=== PATIENT | female | born 1930 | race Caucasian/White ===

== ENCOUNTER → 2016-05-18 | Outpatient (CLI) | payer OTHER, BC ==
--- NOTE | 2016-05-18 15:53 | MA ---
Screening Digital Mammogram With iCAD Analysis Clinical Indications: Routine screening. Her mother was diagnosed with breast cancer in her 70s. The patient has had prior benign right breast biopsies. Technique: Standard cephalocaudal projections are obtained. Digital breast tomosynthesis was performe d in the MLO projection with reconstruction at 1.0 mm slice thickness and composite MLO views reconst ructed. This examination is processed by the iCAD computer aided detection system. Comparison: April 2015, April 2014, May 2013, April 2013, April 2012, April 2011, Chacho [email or web address], March 2009. Breast density: Type C: Heterogeneously dense. Findings: CAD was reviewed. Nodular asymmetry in the region of previous breast biopsy in the upper br east is unchanged. No masses, suspicious calcifications or secondary signs of malignancy are seen. Th ere has been no significant change in the appearance of either breast. Vascular calcifications are no alex. Impression: Benign mammography, BI-RADS 2. Recommendation: Routine mammographic screening in one year as long as physical examination is negativ e in this patient with heterogeneously dense breast parenchyma. [facility] will send a result letter to the patient. Negative mammography should not preclude additional workup of a clinically suspicious finding. The patient's information is entered into a reminder system with a target due date for her next mammo gram.
== END ==
LOC: FIMAGING 12:14
DX: Z12.31 Encounter for screening mammogram for malignant neoplasm of breast (principal); Z80.3 Family history of malignant neoplasm of breast
CPT/HCPCS: G0202

== ENCOUNTER → 2016-06-12 | Outpatient (CLI) | payer OTHER, BC | LOC: FCPNEURO 21:30 | PROVIDERS: ATTEND Psychiatry & Neurology Sleep Medicine | DX: G47.33 Obstructive sleep apnea (adult) (pediatric) (principal); J96.11 Chronic respiratory failure with hypoxia ==

== ENCOUNTER 2016-07-08 18:21 | Inpatient (IN) | payer OTHER, BC ==
[2016-07-08 19:10] LABS: % IMMATURE GRANULYOCYTES 0.4 % (0.0-1.1); ABSOLUTE IMMATURE GRANULOCYTES 0.04 10^3/uL (0.00-0.10); ADD DIFF? NO; ADD MORPH? NO; ADD SCAN? NO; ATYPICAL LYMPHOCYTE FLAG 0 (0-99); FRAGMENT RBC FLAG 0 (0-99); HEMATOCRIT 44.3 % (38.0-47.0); HEMOGLOBIN 14.6 g/dL (12.6-16.3); LEFT SHIFT FLG 0 (0-99); LIPEMIA HEMOLYSIS FLAG 80 (0-99); MEAN CELL HEMOGLOBIN 30.5 pg (27.9-34.1); MEAN CELL VOLUME 92.7 fL (81.5-99.8); MEAN PLATELET VOLUME 9.1 fL (8.7-11.7); PLATELET CLUMPS FLAG 0 (0-99); PLATELET COUNT 346 10^3/uL (150-400); RED BLOOD CELL COUNT 4.78 10^6/uL (4.18-5.33); RED CELL DISTRIBUTION WIDTH 12.5 % (11.5-15.2)
[2016-07-08 19:22] LABS: ANION GAP 11 mEq/L (8-16); CALCIUM 9.2 mg/dL (8.5-10.4); CARBON DIOXIDE 25 mEq/l (22-31); CHLORIDE 99 mEq/L (97-110); CREATININE 0.7 mg/dL (0.6-1.0); GLOMERULAR FILTRATION RATE > 60; GLUCOSE 92 mg/dL (70-100); POTASSIUM 4.6 mEq/L (3.5-5.2); SODIUM 135 mEq/L (134-144)
--- NOTE | 2016-07-08 19:30 | EDPHY ---
H & P Stated Complaint: L side facial swelling post dental work, sent by PCP Time Seen by Provider: 07/08/16 18:47 HPI/ROS: CHIEF COMPLAINT: Evaluation of subcutaneous emphysema HISTORY OF PRESENT ILLNESS: The patient presents to the ED for evaluation of subcutaneous emphysema. She was at her dentist today having work done on a dental harsh on her left lower mandible. During the procedure, high-pressure air was injected into her gumline which resulted in fairly significant swelling of her face, cheek and neck. The patient was directed from her dentist office to the primary care physician's office. The primary care physician who consulted the oral surgeon who recommended the patient be sent to the the ED for evaluation of possible mediastinitis. In the ED, the patient complains of ongoing facial pain, swelling and subcutaneous emphysema. REVIEW OF SYSTEMS: A comprehensive 10 point review of systems is otherwise negative aside from elements mentioned in the history of present illness. Source: Patient Exam Limitations: No limitations - Personal History Current Tetanus/Diphtheria Vaccine: Unsure Current Tetanus Diphtheria and Acellular Pertussis (TDAP): Unsure - Medical/Surgical History Hx Asthma: No Hx Chronic Respiratory Disease: No Hx Diabetes: No Hx Cardiac Disease: No Hx Renal Disease: No Hx Cirrhosis: No Hx Alcoholism: No Hx HIV/AIDS: No Hx Splenectomy or Spleen Trauma: No Other PMH: hypothyroid - Social History Smoking Status: Never smoked - Physical Exam Exam: General Appearance: Alert, no distress Eyes: Pupils equal and round no pallor or injection ENT, Mouth: Left-sided facial swelling, subcutaneous emphysema which tracks throughout the cheek, lower mandible neck into the sternal notch. Respiratory: There are no retractions, lungs are clear to auscultation Cardiovascular: Regular rate and rhythm Gastrointestinal: Abdomen is soft and nontender, no masses, bowel sounds normal Neurological: A&O, normal motor function, normal sensory exam, normal cranial nerves Skin: Warm and dry, no rashes Musculoskeletal: Neck is supple nontender Extremities: symmetrical, full range of motion Constitutional: Initial Vital Signs Temperature (C) 36.7 C 07/08/16 18:30 Heart Rate 78 07/08/16 18:30 Respiratory Rate 17 07/08/16 18:30 Blood Pressure 160/93 H 07/08/16 18:30 O2 Sat (%) 96 07/08/16 18:30 O2 Delivery Mode Room Air Allergies/Adverse Reactions: No Known Allergies Allergy (Unverified 07/08/16 18:29) Home Medications: Medication Instructions Recorded Amox Tr/K Clav (Augmentin) 500 mg PO BID 07/08/16 [Augmentin 500/125 MG TAB (*)] Ascorbic Acid [Vitamin C 500 mg 500 mg PO DAILY 07/08/16 (*)] Aspirin [Aspirin 81mg (*)] 81 mg PO DAILY 07/08/16 Calcium Carbonate [Oyster Shell 500 mg PO DAILY@18 07/08/16 Calcium 500 mg (*)] Cholecalciferol Vit D3 [Vitamin D3 2,000 units PO DAILY 07/08/16 (*)] Herbals/Supplements -Info Only 1 ea PO DAILY 07/08/16 Levothyroxine [Synthroid 112 mcg 112 mcg PO DAILY06 07/08/16 (*)] Magnesium Oxide [Magnesium Oxide 400 mg PO DAILY 07/08/16 400 mg (*)] Multivitamins [Multivitamin (*)] 1 each PO DAILY 07/08/16 Vit B Comp/C/FA/Iron/Vit E 1 each PO DAILY 07/08/16 [Vitamin B Complex Tablet] Medical Decision Making - Diagnostics Imaging: CT Neck Soft Tissues, Without Intravenous Contrast History: Subcutaneous emphysema, air entering the left side of the face during dental procedure. Swelling, pain. Technique: Noncontrast axial computed tomographic images of the neck and chest performed. Dose reduction techniques utilized. Findings: Diffuse subcutaneous emphysema within the left neck soft tissues, with the most cephalad extent in the left inferior periorbital region, left infratemporal fossa, left ell teacher space, left submandibular space, left anterior cervical region and submental region, left carotid space, and retropharyngeal space. Retropharyngeal space begins at the nasopharynx and extends into the superior mediastinum. Subcutaneous emphysema also surrounding the visceral space beginning at the level of the thyroid cartilage and extending into the superior mediastinum. Subcutaneous emphysema also in the right carotid space beginning at the hyoid cartilage extending inferiorly. The visceral space is outlined with subcutaneous emphysema. However, the airway is patent, without narrowing of the airway. No associated focal fluid collection or hematoma. Paranasal sinuses and mastoid air cells are clear. Moderate to severe facet arthropathy on the left at C3-C4 and C4-C5, on the right at C5-C6. Impression: 1. Extensive left neck subcutaneous emphysema extending from the left periorbital region throughout the left neck soft tissues into the superior mediastinum, and also extending on the right and outlining the visceral space. 2. No evidence of focal neck hematoma or fluid collection. 3. Airway is patent. ED Course/Re-evaluation: The patient presents to the emergency department with subcutaneous emphysema which was injected through a high-pressure dental cleaning device. The patient has extensive subcutaneous emphysema without evidence of airway compromise. There is mild mediastinal emphysema without katrin pneumomediastinum noted on the CT scan. The patient is well-appearing with stable vital signs. She does have significant soft tissue swelling and subcutanseous emphysema. I did consult with Dr. Yareli Jackson who is on-call for ENT. She does recommend admission to the hospital for IV antibiotics and observation for the development of a more significant infection. The patient did receive 600 mg IV clindamycin. Consultation was made with Dr. Albright from the hospitalist service who will admit the patient to the hospital for observation. If she has no progression of symptoms or fever she can likely be discharged home with a short course of antibiotics. At this point in time, there is no need for surgical intervention or formal consultation. Differential Diagnosis: DDx includes pneumomediastinum, airway compromise, mediastinitis, pneumothorax, vascular injury - Data Points Laboratory Results: Laboratory Results 07/08/16 19:00 07/08/16 19:00 Medications Given: Discontinued Medications Clindamycin Phosphate/Dextrose (Cleocin 600 Mg (Premix)) 50 mls @ 100 mls/hr IV EDNOW ONE PRN Reason: Protocol Stop: 07/08/16 20:21 Last Admin: 07/08/16 20:15 Dose: 50 mls Clindamycin Phosphate/Dextrose (Cleocin 600 Mg (Premix)) 50 mls @ 100 mls/hr IV Q8HRS RACHEL PRN Reason: Protocol Stop: 08/07/16 21:59 Last Admin: 07/08/16 23:00 Dose: Not Given Departure - Departure Disposition: [facility] Inpatient Acute Clinical Impression: Subcutaneous emphysema Condition: Good
[2016-07-08] MEDS ORDERED: CLINDAMYCIN 600 MG/DEXTROSE 50 ML IV ONE (19:52)
[2016-07-08] MEDS ORDERED: oxyCODONE IR 5 MG TAB PO PRN (21:55)
[2016-07-08] MEDS ORDERED: HYDROmorphONE/DILAUDID 1 MG/ML SYR IVP PRN (21:55)
[2016-07-08] MEDS ORDERED: ONDANSETRON DISINTEGRATING 4 MG TAB PO PRN (21:55)
[2016-07-08] MEDS ORDERED: ALBUTEROL 3 ML DEYVIAL IH PRN (21:55)
[2016-07-08] MEDS ORDERED: ONDANSETRON 4 MG/2 ML VIAL IVP PRN (21:55)
[2016-07-08] MEDS ORDERED: CLINDAMYCIN 600 MG/DEXTROSE 50 ML IV SCH (22:00)
[2016-07-09] MEDS: ACETAMINOPHEN 325 MG TAB PO PRN ×3 (00:27→11:24)
--- NOTE | 2016-07-09 00:47 | GHP ---
[f rep st] HISTORY AND PHYSICAL DATE OF ADMISSION: 07/08/2016 CHIEF COMPLAINT: Complaint facial swelling. HISTORY: This is an 85-year-old female with a past medical history of hypothyroidism and recent iss ue with a dental infection presenting shortly after being seen by her dentist today and developing f acial swelling during the dental procedure that continued shortly after. She notes she was being tr eated for an infection that she describes as being below the gum line when her dentist was working w ith various instruments to push the gum out of the way in order to get at the infection of her tooth . She notes that he was having difficulty keeping the area dry and was using forced air to try to d ry out the area around the gum and the tooth. While he was doing this, she began to feel as if her face was swelling and mentioned to him that she had some concerns about this. He initially reassure d her but then noticed that the side of her face was significantly swollen. At that point, the proc edure was discontinued and per her report he became concerned that she had some air in the soft tiss ues of her face, but he was uncertain what should be done about it. After calling around to some or al facial surgeons, he started her on antibiotics and reassured her that she could go home and watch this. The swelling continued, however, and began to involve her eye with swelling and drainage of what she thought was possibly from her left eye. She discussed this with her primary care physician who also had not had much experience with this but recommended that she come to the emergency room for further evaluation. She denies any difficulty breathing. She denies any fevers or chills. She does not have any chest pain. PAST MEDICAL HISTORY: Includes hypothyroidism and recent dental issues as well as chronic back pain . FAMILY HISTORY: Parents are . SOCIAL HISTORY: The patient is a non drinker, non smoker. She lives independently. REVIEW OF SYSTEMS: 10-point review of systems obtained and negative except as per HPI. MEDICATIONS: 1. Calcium carbonate. 2. Multivitamin. 3. Mag oxide. 4. Aspirin. 5. Synthroid. 6. Cholecalciferol. 7. Ascorbic acid. 8. Multivitamin. 9. Augmentin. ALLERGIES: No known drug allergies. PHYSICAL EXAMINATION: VITAL SIGNS: BP 162/78, heart rate 79, respiratory rate 14, O2 sat 95% on ro om air. Temperature is 36.8. GENERAL APPEARANCE: The patient is awake and alert, no acute distres s. EYES: Left eye has significant edema to the medial eyelid with some dry crust on her upper and l ower lids. Extraocular movements are intact and pupils are equal, round, and reactive. HEENT: The re is swelling to the lateral portion of face and neck with crepitus, no erythema or tenderness. CA RDIOVASCULAR: RRR, no MRG. There is crepitus present across the anterior chest. PULMONARY: CTA b ilaterally. Normal work of breathing. ABDOMEN: Soft, nontender. Positive bowel sounds. EXTREMIT IES: No clubbing, cyanosis, or edema. SKIN: Warm, dry and well perfused. NEURO/PSYCH: Oriented, appropriate, and pleasant. CLINICAL DATA: White blood cell count of 9.5, hematocrit of 44.3. Chemistry is unremarkable. Ches t CT personally reviewed and interpreted shows pneumomediastinum in the superior mediastinum without evidence of pneumopericardium or pneumothorax no other acute pulmonary abnormalities. Neck CT perso zabrina reviewed, showing extensive left neck subcutaneous emphysema extending from the left periorbit al region throughout the left neck soft tissue into the superior mediastinum without focal hematoma or fluid collection. ASSESSMENT AND PLAN: This is an 85-year-old female presenting with significant subcutaneous emphyse ma involving periorbital region down to her mediastinum status post dental procedure. 1. Subcutaneous emphysema. Again, this is occurred presumably secondary to dental trauma. This wa s discussed with the ER doctor and ENT who recommend treating with antibiotics for concerns of this seeding and infection and monitoring overnight. She does not have any signs of respiratory distress at this point. Her eyelid is significantly swollen but discussed CT findings with Radiology who no te that there does not appear to be any involvement of the orbit itself and there is no loss of visi on or difficulty with eye movement. We will monitor both airway and left eye overnight. Being pam alex with clindamycin. Suspect that this will resorb in the next several days to a week. 2. Dental infection. As per above, dentist started patient on Augmentin but we will treat with cli ndamycin for now. As long as she continues to improve in terms of her facial swelling, she can like ly be discharged back on Augmentin. 3. Hypothyroidism. We will continue levothyroxine. DISPOSITION: Observation status. Will likely need less than 48 hours stay for evaluation and manag ement of above. Patient is new to my care. Old records reviewed. Summary is as per HPI and past medical history. Care plan reviewed with the ER doctor and radiology. /[id number]/MODL
[2016-07-09] MEDS: LEVOTHYROXINE 112 MCG TAB PO SCH (04:38)
[2016-07-09] MEDS: CLINDAMYCIN 600 MG/DEXTROSE 50 ML IV SCH ×3 (04:38→20:09)
[2016-07-09 05:20] LABS: % IMMATURE GRANULYOCYTES 0.3 % (0.0-1.1); ABSOLUTE IMMATURE GRANULOCYTES 0.02 10^3/uL (0.00-0.10); ADD DIFF? NO; ADD MORPH? NO; ADD SCAN? NO; ATYPICAL LYMPHOCYTE FLAG 10 (0-99); FRAGMENT RBC FLAG 0 (0-99); HEMATOCRIT 40.9 % (38.0-47.0); HEMOGLOBIN 13.3 g/dL (12.6-16.3); LEFT SHIFT FLG 0 (0-99); LIPEMIA HEMOLYSIS FLAG 80 (0-99); MEAN CELL HEMOGLOBIN 30.6 pg (27.9-34.1); MEAN CELL HEMOGLOBIN CONCENTR. 32.5 g/dL (32.4-36.7); MEAN CELL VOLUME 94.2 fL (81.5-99.8); MEAN PLATELET VOLUME 9.3 fL (8.7-11.7); PLATELET CLUMPS FLAG 10 (0-99); PLATELET COUNT 329 10^3/uL (150-400); RED BLOOD CELL COUNT 4.34 10^6/uL (4.18-5.33); RED CELL DISTRIBUTION WIDTH 12.6 % (11.5-15.2)
[2016-07-09 05:35] LABS: ANION GAP 10 mEq/L (8-16); CARBON DIOXIDE 25 mEq/l (22-31); CHLORIDE 101 mEq/L (97-110); CREATININE 0.7 mg/dL (0.6-1.0); GLOMERULAR FILTRATION RATE > 60; GLUCOSE 96 mg/dL (70-100); POTASSIUM 4.9 mEq/L (3.5-5.2); SODIUM 136 mEq/L (134-144)
[2016-07-09] MEDS: MAGNESIUM OXIDE 400 MG TAB PO SCH (07:49)
[2016-07-09] MEDS: CHOLECALCIFEROL VIT D3 1,000 UNITS TAB PO SCH (07:49)
[2016-07-09] MEDS: ASPIRIN 81 MG CHEWABLE TAB PO SCH (07:49)
[2016-07-09] MEDS: VITAMIN B COMPLEX 1 EA CAP/TAB PO SCH (07:49)
[2016-07-09] MEDS: MULTIVITAMINS 1 EACH TAB PO SCH (07:49)
[2016-07-09] MEDS: ASCORBIC ACID 500 MG TAB PO SCH (07:49)
--- NOTE | 2016-07-09 12:11 | HOSPPROG ---
Hospitalist Progress Note Assessment/Plan: Subcutaneous emphysema - my first day seeing her, but seems to be improving per pt report. Had some purulent drainage from eye, which was wiped away by RN, no Cx taken. Some vague erythema libby-orbitally. No fevers. Personally reviewed CT neck and chest, +pneumomediastinum and subcutaneous emphysema of libby- orbital region into neck, uncommon complication of dental procedure. -cont IV Clindamycin. Odontogenic infection - was on oral Augmentin, which is held in favor of IV Clindamycin -possible d/c back on oral Augmentin if continues to improve -has f/u plan with yard spotter Hypothyroidism - cont outpt meds Full code Dispo - change to inpt as will need ongoing IV atbx Subjective: PT feels better. Decreased swelling of face and neck, but still swelling around eye. Noted some purulent drainage yesterday, which was wiped away. No fevers/chills. No CP or SOB. Objective: Vital Signs Temp Pulse Resp BP Pulse Ox 36.7 C 78 16 144/70 H 94 07/09/16 11:30 07/09/16 11:30 07/09/16 11:30 07/09/16 11:30 07/09/16 11:30 Laboratory Results 07/09/16 04:32 07/09/16 04:32 07/08/16 07/09/16 07/10/16 05:59 05:59 05:59 Intake Total 440 Balance 440 - Physical Exam Constitutional: no apparent distress Eyes: PERRL Ears, Nose, Mouth, Throat: other (left libby-orbital swelling, localized to medial aspect of eye, vague erythema, no purulence) Cardiovascular: regular rate and rhythym Respiratory: no respiratory distress, clear to auscultation Gastrointestinal: normoactive bowel sounds, soft, non-tender abdomen Skin: warm Musculoskeletal: full muscle strength Neurologic: AAOx3 Psychiatric: interacting appropriately ICD10 Worksheet Patient Problems: Problems Problem Status Onset Subcutaneous emphysema Acute
[2016-07-09] MEDS ORDERED: POLYETHYLENE GLYCOL 3350 17 GM PKT PO PRN (17:15)
[2016-07-09] MEDS ORDERED: CALCIUM CARBONATE 500 MG TAB PO SCH (18:00)
[2016-07-10] MEDS: LEVOTHYROXINE 112 MCG TAB PO SCH (03:37)
[2016-07-10] MEDS: CLINDAMYCIN 600 MG/DEXTROSE 50 ML IV SCH (03:37)
[2016-07-10] MEDS ORDERED: PNEUMOC 13-VAL CONJ-DIP CRM/PF 0.5 ML SYR IM ONE (04:01)
[2016-07-10] MEDS: ACETAMINOPHEN 325 MG TAB PO PRN (05:19)
[2016-07-10 07:57] VITALS: BP 116/68; PULSE 79; RESP 18; TEMP 98.2; O2SAT 87
[2016-07-10] MEDS: MAGNESIUM OXIDE 400 MG TAB PO SCH (09:08)
[2016-07-10] MEDS: VITAMIN B COMPLEX 1 EA CAP/TAB PO SCH (09:08)
[2016-07-10] MEDS: ASCORBIC ACID 500 MG TAB PO SCH (09:08)
[2016-07-10] MEDS: ASPIRIN 81 MG CHEWABLE TAB PO SCH (09:08)
[2016-07-10] MEDS: MULTIVITAMINS 1 EACH TAB PO SCH (09:08)
[2016-07-10] MEDS: CHOLECALCIFEROL VIT D3 1,000 UNITS TAB PO SCH (09:08)
--- NOTE | 2016-07-10 10:06 | GDS ---
[f rep st] DISCHARGE SUMMARY DISCHARGE DIAGNOSES: 1. Subcutaneous emphysema. 2. Odontogenic infection. 3. Hypothyroidism. CONSULTANTS: None. HISTORY: For details, please see the dictated history and physical dated July 08, 2014. In brief, the patient is an 85-year-old female with a history of hypothyroidism who recently had a dental pro cedure done and subsequently used forced air to try to dry the area around the gum and tooth. While she was doing that, she began to feel swelling in her face that extended down into her neck. She p resented to the emergency department where CT imaging revealed findings consistent with subcutaneous emphysema extending into the soft tissue of the neck in the superior mediastinum without focal raya sherie or fluid collection. She was admitted to the hospital for further management. HOSPITAL COURSE: [facility] Her subcutaneous emphysema was thou ght secondary to dental trauma. She was treated with IV clindamycin due to concern for infection. Her condition markedly improved, and at the time of discharge her swelling and symptoms are dramatic ally decreased. She had no evidence of respiratory distress. She will be discharged home to [facility] te 1 week of Augmentin as previously prescribed. DISPOSITION: Patient is discharged home in stable condition. FOLLOWUP: The patient has a followup appointment with oral surgeon on Tuesday as well as a periodont ist on Tuesday. She will see her primary care physician in followup as needed. DISCHARGE MEDICATIONS: Please see [facility] for completed, updated outpatient medication list. Ther e are no new medications on discharge. She will complete her 1 week of oral Augmentin, which was al ready prescribed. /[id number]/MODL
== END 2016-07-10 11:04 | disposition home or self-care (01) | DRG 921 ==
LOC: F3E 21:12 → OBSVTOIN 07-09 12:08
PROVIDERS: ADMIT Internal Medicine; ATTEND Internal Medicine
DX: T81.82XA Emphysema (subcutaneous) resulting from a procedure, initial encounter (principal); K04.7 Periapical abscess without sinus; E03.9 Hypothyroidism, unspecified; Z23 Encounter for immunization
CPT/HCPCS: 82947-QW; 96374; G0009; G0378

== ENCOUNTER → 2017-05-23 | Outpatient (CLI) | payer OTHER, BC | LOC: FIMAGING 12:36 | PROVIDERS: ATTEND Family Medicine Geriatric Medicine | DX: Z12.31 Encounter for screening mammogram for malignant neoplasm of breast (principal); Z80.3 Family history of malignant neoplasm of breast ==

== ENCOUNTER → 2017-08-16 | Outpatient (CLI) | payer OTHER, BC | LOC: BMCIMAGING 15:14 | PROVIDERS: ATTEND Internal Medicine Rheumatology | DX: M19.011 Primary osteoarthritis, right shoulder (principal) | CPT/HCPCS: 86812-90 ==